=== PATIENT | female | born 1995 | race African-American/Black ===

== ENCOUNTER 2017-01-08 09:49 | Emergency (ER) | payer OTHER ==
[2017-01-08] MEDS ORDERED: Albuterol/Ipratropium NEB.SOL* Albuterol 2.5 MG/Ipratropium 0.5 MG 3 ML INH ONE (10:11)
[2017-01-08] MEDS ORDERED: Albuterol/Ipratropium NEB.SOL* Albuterol 2.5 MG/Ipratropium 0.5 MG 3 ML ONE (10:13)
--- NOTE | 2017-01-08 11:08 | RAD ---
INDICATION: Wheezing, productive cough. Asthma attack. Shortness of breath. COMPARISON: April 21, 2016 TECHNIQUE: Dual energy PA and routine lateral views of the chest were obtained. REPORT: Clear lungs and pleural spaces. Negative for pneumothorax. The heart, pulmonary vasculature, and mediastinal contours are unremarkable. Unremarkable osseous structures and soft tissue contours accounting for large body habitus.. IMPRESSION: No evidence for pneumonia. No evidence for acute intrathoracic disease.
--- NOTE | 2017-01-08 11:44 | ED ---
HPI Cardiac - HPI Summary HPI Summary: Pt here w/ asthma exacerbation - URI past 2 weeks w/ productive cough - no fever. Cough is better but asthma worse - out of albuterol inhaler. Has neb at home which she's been using in place of inhaler and it was helping but she ran out of medication. Denies N/V/D, rash, leg swelling, change in appetite. - History of Current Complaint Chief Complaint: EDShortnessOfBreath Stated Complaint: DIFF BREATHING Time Seen by Provider: 01/08/17 10:36 Hx Obtained From: Patient Pain Intensity: 0 - Allergy/Home Medications Allergies/Adverse Reactions: Allergies Allergy/AdvReac Type Severity Reaction Status Date / Time No Known Allergies Allergy Verified 12/29/15 19:26 PMH/Surg Hx/FS Hx/Imm Hx Previously Healthy: Yes Endocrine/Hematology History: Reports: Other Endocrine/Hematological Disorders - PCOS - no tx at this time Respiratory History: Reports: Hx Asthma Infectious Disease History: No Infectious Disease History: Denies: Traveled Outside the [place] in Last 30 Days - Family History Known Family History: Positive: None - Social History Lives: With Family Alcohol Use: Rare Hx Substance Use: No Substance Use Type: Reports: None Hx Tobacco Use: No Smoking Status (MU): Never Smoked Tobacco Review of Systems Negative: Fever, Chills ENT: Other - improved - see HPI Negative: Palpitations, Chest Pain Positive: Shortness Of Breath, Cough Negative: Abdominal Pain, Vomiting, Diarrhea, Nausea Positive: no symptoms reported Musculoskeletal: Negative Skin: Negative Neurological: Negative Psychological: Normal All Other Systems Reviewed And Are Negative: Yes Physical Exam Triage Information Reviewed: Yes Vital Signs On Initial Exam: Initial Vitals Temp Pulse Resp BP Pulse Ox 98.1 F 110 24 147/87 100 01/08/17 09:51 01/08/17 09:51 01/08/17 09:51 01/08/17 09:51 01/08/17 09:51 Vital Signs Reviewed: Yes Appearance: Positive: Well-Appearing, No Pain Distress, Obese Skin: Positive: Warm, Dry - no rash observed Head/Face: Positive: Normal Head/Face Inspection Eyes: Positive: Normal, EOMI, Conjunctiva Clear ENT: Positive: Hearing grossly normal, Pharynx normal, Nasal congestion - Lt, TMs normal. Negative: Nasal drainage, Tonsillar swelling, Tonsillar exudate Neck: Positive: Supple, Nontender, No Lymphadenopathy Respiratory/Lung Sounds: Positive: Breath Sounds Present, Wheezes - diffuse EXP wheeze, Other - speaking in full sentences w/o difficulty; no tripodding, no labored breathing, no signs of cyanosis. Negative: Rales, Rhonchi Cardiovascular: Positive: Normal, RRR Abdomen Description: Positive: Nontender, Soft Bowel Sounds: Positive: Present Musculoskeletal: Positive: Normal, Strength/ROM Intact Neurological: Positive: Normal, Sensory/Motor Intact, Alert, Oriented to Person Place, Time, CN Intact II-III Psychiatric: Positive: Normal - Wesley Coma Scale Coma Scale Total: 15 Diagnostics - Vital Signs Vital Signs Temp Pulse Resp BP Pulse Ox 01/08/17 10:16 88 15 100 01/08/17 10:02 101 106/73 98 01/08/17 10:00 98 98 01/08/17 09:51 98.1 F 110 24 147/87 100 - Laboratory Lab Statement: Any lab studies that have been ordered have been reviewed, and results considered in the medical decision making process. Re-Evaluation - Re-Evaluation First Eval Change: Improved - s/p neb Disposition - Diagnoses Provider Diagnoses: Asthma exacerbation Discharge - Discharge Plan Condition: Stable Disposition: HOME Prescriptions: Albuterol HFA INHALER* [Ventolin HFA Inhaler*] 2 puff INH Q6H PRN #1 mdi PRN Reason: shortness of breath Patient Education Materials: Asthma (ED), How to Use a Nebulizer (ED) Referrals: [facility] [Outside] No Primary Care Phys,NOPCP [Primary Care Provider] - Additional Instructions: You are having an asthma exacerbation - this may be treated with regular albuterol treatments through your inhaler (a new one was sent today) or a nebulizer treatment. You may also start taking zyrtec or claritin daily (see dosing instructions on box). Avoid candles, smoke, air freshener, perfume, etc. *If symptoms worsen (ie. chest tightness, trouble breathing, wheezing, fever, vomiting, ab pain, etc), return to ED
[2017-01-08 11:53] VITALS: BP 101/72
== END 2017-01-08 11:51 | disposition home or self-care (01) ==
LOC: ED 09:49
DX: J06.9 Acute upper respiratory infection, unspecified (principal); J45.901 Unspecified asthma with (acute) exacerbation; R05 Cough
CPT/HCPCS: 71020; 94640; 99282; A9270-GY